=== PATIENT | male | born 1975 | race Caucasian/White ===

== ENCOUNTER 2022-12-06 12:52 | Outpatient (CLI) | payer OTHER | END 2022-12-06 12:53 | disposition home or self-care (01) | LOC: CSHCP 12:52 | PROVIDERS: ATTEND Internal Medicine Critical Care Medicine | DX: C34.12 Malignant neoplasm of upper lobe, left bronchus or lung (principal); J44.9 Chronic obstructive pulmonary disease, unspecified | CPT/HCPCS: 94060; 94726; 94729; 94760 ==